=== PATIENT | female | born 1990 | race Native Hawaiian/Other Pacific Islander ===

== ENCOUNTER 2017-11-01 11:34 | Day surgery (SDC) | payer OTHER ==
[2017-10-28 09:00] VITALS: BMI 19.7
[2017-11-01 12:45] LABS: HEMOGLOBIN 12.7 g/dL (12.0-16.0); MEAN CELL VOLUME 91.2 fl (81.0-99.0); MEAN CORPUSCULAR HEMOGLOBIN 31.1 pg (27.0-31.0); MEAN CORPUSCULAR HGB CONC 34.1 g/dL (33.0-37.0); RBC 4.09 Mil/uL (3.80-5.20); WHITE BLOOD COUNT 5.7 K/uL (4.8-10.8)
[2017-11-01 12:51] VITALS: RESP 18
[2017-11-01] MEDS ORDERED: Propofol 10 mg/ml Inj (20 ML) ONE (13:45)
[2017-11-01] MEDS ORDERED: Succinylcholine 200 mg/10 ml Inj IV ONE (13:47)
[2017-11-01] MEDS ORDERED: Lactated Ringer's 1,000 ML IV ONE (14:00)
[2017-11-01] MEDS ORDERED: ePHEDrine 50 mg/ml Inj ONE (14:18)
[2017-11-01] MEDS ORDERED: Dexamethasone 4 mg/1 ml ONE (14:28)
[2017-11-01] MEDS ORDERED: Silver Nitrate Topical - Stick ONE (14:43)
[2017-11-01] MEDS ORDERED: HYDROmorphone 0.5 mg/0.5 ml ISec IVP PRN (14:55)
[2017-11-01 15:06] VITALS: O2SAT 100
[2017-11-01 16:57] VITALS: BP 98/67; PULSE 68; TEMP 98
--- NOTE | 2017-11-02 11:02 | CP.SDSHP ---
Same Day Surgery H & P - History Proposed Procedure: Hysteroscopic polypectomy Pre-Op Diagnosis: Endometrial polyps - Allergies Allergies: Allergies No Known Allergies Allergy (Verified 10/28/17 08:59) - Impression Impression: May proceed with discharge after operative procedure. Pt. Evaluated Today:Candidate for Anesthesia & Procedure: Yes Short Stay Discharge - Short Stay Discharge Admitting Diagnosis/Reason for Visit: N84.0 Disposition: HOME/ ROUTINE Referrals: Екатерина Mccray MD [Primary Care Provider] -
--- NOTE | 2017-11-03 06:53 | OP ---
PROCEDURE DATE: 11/01/2017 PREOPERATIVE DIAGNOSIS: The patient is G0, P0 female with endometrial polyps. POSTOPERATIVE DIAGNOSIS: Endometrial polyps. PROCEDURE: Hysteroscopic polypectomy with MyoSure LITE. SURGEON: Екатерина Mccray MD. CASINO HOST: None. TYPE OF ANESTHESIA: General with LMA. ANESTHESIOLOGIST: Dr. Darnell Rogel. IV FLUID: 500 mL HYSTEROSCOPIC FLUID: Normal saline, deficit 285 mL. URINE OUTPUT: None. ESTIMATED BLOOD LOSS: Less than 10 mL. FINDINGS: 1. Uterine sound to 8-1/4 cm. 2. Multiple posterior wall sessile endometrial polyps. 3. Normal tubal ostia bilaterally. 4. Anteverted uterus. 5. Hemostasis. DESCRIPTION OF PROCEDURE: After appropriate consent was obtained, all questions were answered, the patient was transferred to operating room #2 at [facility]. An exam under anesthesia was performed with findings as noted above, small anteverted uterus. A sterile prep and drape with Betadine was performed in the usual fashion, attention was directed to the perineum. A weighted speculum was placed in the posterior fornix of the vagina and right angle retractor to the anterior fornix of the vagina. The anterior lip of the cervix was grasped with a single-tooth tenaculum and the cervix was serially dilated with a Josse dilator to accommodate the MyoSure hysteroscope. The MyoSure hysteroscope was prepared with normal saline and advanced under direct visualization to the uterine cavity. The uterine cavity was surveyed with the finding of normal tubal ostia bilaterally and several sessile but large endometrial polyps at the posterior wall of the uterine cavity were noted. The MyoSure LITE device was prepared and introduced under direct visualization into the uterine cavity. The MyoSure LITE was used to resect the endometrial polyp completely. The MyoSure device were turned at 180 degrees to directly visualize the endometrial polyps during the process. The uterine cavity was surveyed at the conclusion of the procedure. It was noted to be hemostatic. The shape of the uterus was normal. The remaining endometrial lining was smooth and normal appearing. The hysteroscope was then removed, as well as the single-tooth tenaculum and the cervix was visualized. Hemostasis was achieved with sponge sticks. All instruments were removed from the vaginal vault and the patient was transferred to the recovery room in good condition. She will follow up with Dr. Rosemary Mccray in 2 weeks. Specimens were sent to pathology and were labelled as endometrial polyps. Екатерина Mccray MD
== END 2017-11-01 17:05 | disposition home or self-care (01) ==
LOC: H.OPSURG 11:34
PROVIDERS: ATTEND Obstetrics & Gynecology Reproductive Endocrinology
DX: N84.0 Polyp of corpus uteri (principal)
CPT/HCPCS: 36415; 58558; 85027; 88305; J0330; J1100; J2001; J2704; J2765; J3010; J7120